=== PATIENT | female | born 1950 | race Caucasian/White ===

== ENCOUNTER 2018-08-24 11:46 | Observation (INO) | payer MEDICARE ==
[~2018-08-24 11:46] MED LIST: CHOL200074 PO; DIPH25TA20 PO; FURO20TA4 PO; GLIM2TAB3 PO; HYDR12.530 PO; KETO5DRO82 OP; LEVO500T89 PO; LOSA50TA64 PO; LUBI24CA2 PO; MONT10TA24 PO; OFLO35OS OD; OMEP40CA37 PO; PIOG15TA66 PO; PRED5DRO25 OP; RANI150T7 PO; SIMV20TA6 PO; TURM500C4 PO; UBID10CA6 PO; UMEC1DIS IH
[2018-08-24 13:10] LABS: EOSINOPHILS % (AUTO) 1.5 % (0.0-8.0); HEMATOCRIT 45.8 % (36-48); LYMPHOCYTES % (AUTO) 26.1 % (21.0-51.0); MEAN CORPUSCULAR HEMOGLOBIN 29.7 pg (27.0-33.0); MEAN CORPUSCULAR HGB CONC 32.7 g/dL (32.0-36.0); MEAN CORPUSCULAR VOLUME 90.9 fL (79-99); MONOCYTES % (AUTO) 9.6 % (3.0-13.0); NEUTROPHILS % (AUTO) 61.8 % (40.0-77.0); NUCLEATED RED BLOOD CELLS 0.1 % (0.0-0.19); PLATELET COUNT (AUTO) 211 K/uL (130-400); RED BLOOD CELL COUNT(AUTO) 5.04 MIL/uL (4.00-5.50); RED CELL DISTRIBUTION WIDTH 13.6 % (11.0-15.5); WHITE BLOOD COUNT (AUTO) 6.3 K/uL (4.8-10.8)
[2018-08-24 13:12] LABS: APPEARANCE,URINE Clear (CLEAR); BILIRUBIN,URINE Negative (NEGATIVE); COLOR,URINE Yellow (YELLOW); GLUCOSE, URINE (UA) Negative (NEGATIVE); KETONES,URINE Negative (NEGATIVE); LEUKOCYTE ESTERASE ,URINE Negative (NEGATIVE); NITRATE,URINE Negative (NEGATIVE); OCCULT BLOOD,URINE Negative (NEGATIVE); PROTEIN,URINE Negative (NEGATIVE); UROBILINOGEN,URINE 0.2 mg/dL (0.2-1.0)
[2018-08-24 13:18] LABS: CREATININE 0.8 mg/dL (0.5-1.5); POTASSIUM 3.6 mmol/L (3.5-5.1)
[2018-08-24 13:23] LABS: ALBUMIN 3.8 g/dL (3.5-5.0); BILIRUBIN,TOTAL 0.4 mg/dL (0.2-1.0); TOTAL PROTEIN, SERUM 8.2 g/dL (6.0-8.3)
[2018-08-24 13:24] LABS: INR 0.97 (0.85-1.15); PARTIAL THROMBOPLASTIN TIME 28.3 SEC (26.3-35.5); PROTHROMBIN TIME 10.2 SEC (9.6-11.6)
[2018-08-24] MEDS ORDERED: SODIUM CHLORIDE 0.9% 500ML 500 ML IV ONE (14:40)
[2018-08-24] MEDS ORDERED: ONDANSETRON HCL 4 MG/2 ML VIAL IV PRN (16:00)
[2018-08-24] MEDS ORDERED: HYDRALAZINE HCL 20 MG/ML VIAL IV PRN (16:00)
[2018-08-24] MEDS ORDERED: ACETAMINOPHEN 325 MG TAB PO PRN ×2 (16:00)
[2018-08-24] MEDS ORDERED: FAMOTIDINE/PF 20 MG/2 ML VIAL IV SCH (21:00)
== END 2018-08-24 21:16 | disposition home or self-care (01) ==
LOC: EDH 11:46 → EDHIP 15:49
PROVIDERS: ADMIT Internal Medicine; ATTEND Internal Medicine
DX: K57.30 Diverticulosis of large intestine without perforation or abscess without bleeding (principal); E11.9 Type 2 diabetes mellitus without complications; E66.9 Obesity, unspecified; I10 Essential (primary) hypertension; J44.9 Chronic obstructive pulmonary disease, unspecified; Z87.891 Personal history of nicotine dependence; Z98.51 Tubal ligation status; Z79.01 Long term (current) use of anticoagulants
CPT/HCPCS: 36415; 74176; 80053; 81003; 85025; 85610; 85730; 86850; 86900; 86901; 99284; G0378 ×5; J7040

== ENCOUNTER 2019-10-30 17:40 | Inpatient (IN) | payer MEDICARE ==
[~2019-10-30] VITALS: Ht 170.2 cm; Wt 137.0 kg
[~2019-10-30 17:40] MED LIST changes: -GLIM2TAB3 PO; +GLIM2TAB30 PO; -MONT10TA24 PO; +MONT10TA26 PO; +OMEP40CA13 PO; -OMEP40CA37 PO; +SIMV-43 PO; -SIMV20TA6 PO
[2019-10-30] MEDS ORDERED: ONDANSETRON HCL 4 MG/2 ML VIAL ONE (18:05)
[2019-10-30] MEDS ORDERED: MORPHINE SULFATE 4 MG/1ML SYG ONE ×2 (18:05→19:44)
[2019-10-30] MEDS ORDERED: SODIUM CHLORIDE 0.9% 1000ML 1,000 ML IV ONE ×2 (18:05→21:39)
[2019-10-30 18:19] LABS: BASOPHILS % (AUTO) 0.5 % (0.0-5.0); EOSINOPHILS % (AUTO) 0.7 % (0.0-8.0); HEMATOCRIT 42.1 % (36-48); LYMPHOCYTES % (AUTO) 15.6 % (21.0-51.0); MEAN CORPUSCULAR HEMOGLOBIN 30.4 pg (27.0-33.0); MEAN CORPUSCULAR HGB CONC 33.3 g/dL (32.0-36.0); MEAN CORPUSCULAR VOLUME 91.5 fL (79-99); MONOCYTES % (AUTO) 5.6 % (3.0-13.0); NEUTROPHILS % (AUTO) 77.1 % (40.0-77.0); PLATELET COUNT (AUTO) 227 K/uL (130-400); RED CELL DISTRIBUTION WIDTH 13.5 % (11.0-15.5); WHITE BLOOD COUNT (AUTO) 8.4 K/uL (4.8-10.8)
[2019-10-30 18:33] LABS: CREATININE 0.9 mg/dL (0.5-1.5); INR 0.96 (0.85-1.15); PARTIAL THROMBOPLASTIN TIME 26.4 SEC (26.3-35.5); POTASSIUM 3.7 mmol/L (3.5-5.1); PROTHROMBIN TIME 10.4 SEC (9.6-11.6)
[2019-10-30 18:38] LABS: ALBUMIN 3.7 g/dL (3.5-5.0); BILIRUBIN,TOTAL 0.2 mg/dL (0.2-1.0); TOTAL PROTEIN, SERUM 7.8 g/dL (6.0-8.3)
[2019-10-30] MEDS ORDERED: HYOSCYAMINE SULFATE 0.125 MG TAB.SUBL SL ONE (19:08)
[2019-10-30] MEDS ORDERED: FAMOTIDINE/PF 20 MG/2 ML VIAL IV ONE (19:09)
[2019-10-30] MEDS ORDERED: IPRATROPIUM/ALBUTEROL SULFATE 3 ML SOLUTION IH ONE (19:17)
[2019-10-30] MEDS ORDERED: ASPIRIN 325 MG TABLET ONE (19:51)
[2019-10-30] MEDS ORDERED: NITROGLYCERIN 0.4 MG SL TAB SL ONE (19:52)
[2019-10-30] MEDS ORDERED: SODIUM CHLORIDE 0.9% 250 ML IV ONE (19:56)
[2019-10-30] MEDS ORDERED: KETOROLAC TROMETHAMINE 15MG/ML ONE (20:22)
[2019-10-30] MEDS ORDERED: ACETAMINOPHEN 325 MG TAB PO PRN ×2 (21:15)
[2019-10-30] MEDS ORDERED: MORPHINE SULFATE 4 MG/1ML SYG IV PRN (21:15)
[2019-10-30] MEDS ORDERED: IPRATROPIUM/ALBUTEROL SULFATE 3 ML SOLUTION IH PRN (21:15)
[2019-10-30] MEDS ORDERED: LACTULOSE 20 GM/30 ML UDCUP PO PRN (21:15)
[2019-10-30] MEDS ORDERED: NITROGLYCERIN 0.4 MG SL TAB SL PRN (21:15)
[2019-10-30] MEDS: SODIUM CHLORIDE 0.9% 1000ML 1,000 ML IV SCH (21:15)
[2019-10-30] MEDS ORDERED: SODIUM CHLORIDE 0.9% 50 ML IV ONE (21:39)
[2019-10-30] MEDS ORDERED: CEFTRIAXONE SODIUM 1 GM ONE (21:39)
[2019-10-30 22:20] VITALS: BP 123/44
[2019-10-30] MEDS ORDERED: IOHEXOL 350 MG/ML 100ML INFUS..BTL IV ONE (22:50)
[2019-10-30] MEDS ORDERED: IOHEXOL-350 75 ML VIAL IV ONE (23:07)
[2019-10-30 23:35] LABS: CHOLESTEROL 163 mg/dL (<200); HDL CHOLESTEROL 105 mg/dL (35-85); LDL DIRECT 92 mg/dL (0-99); TRIGLYCERIDES 106 mg/dL (30-200)
[2019-10-30] MEDS ORDERED: AEC81 PO ×2 (23:35)
[2019-10-30] MEDS ORDERED: PIOG15TA66 PO (23:35)
[2019-10-30] MEDS ORDERED: LUBI24CA2 PO ×2 (23:35)
[2019-10-30] MEDS ORDERED: HYDR12.54 PO (23:35)
[2019-10-30] MEDS: AZITHROMYCIN 500MG+NS 250ML 250 ML IV SCH (23:40)
[2019-10-31] MEDS ORDERED: SODIUM CHLORIDE 3% FOR INHALATION 4 ML/AMP VIAL.NEB IH ONE ×2 (00:48→10:33)
[2019-10-31 03:22] LABS: BASOPHILS % (AUTO) 0.4 % (0.0-5.0); EOSINOPHILS % (AUTO) 0.2 % (0.0-8.0); HEMATOCRIT 40.7 % (36-48); LYMPHOCYTES % (AUTO) 11.6 % (21.0-51.0); MEAN CORPUSCULAR HEMOGLOBIN 30.5 pg (27.0-33.0); MEAN CORPUSCULAR HGB CONC 32.4 g/dL (32.0-36.0); MONOCYTES % (AUTO) 8.1 % (3.0-13.0); NEUTROPHILS % (AUTO) 79.3 % (40.0-77.0); PLATELET COUNT (AUTO) 203 K/uL (130-400); RED BLOOD CELL COUNT(AUTO) 4.33 MIL/uL (4.00-5.50); RED CELL DISTRIBUTION WIDTH 13.6 % (11.0-15.5); WHITE BLOOD COUNT (AUTO) 13.2 K/uL (4.8-10.8)
[2019-10-31 03:51] LABS: CREATININE 0.8 mg/dL (0.5-1.5); POTASSIUM 3.9 mmol/L (3.5-5.1)
[2019-10-31 04:00] VITALS: BP 113/40
[2019-10-31] MEDS ORDERED: BENZONATATE 100 MG CAPSULE PO PRN (05:30)
[2019-10-31] MEDS ORDERED: BENZONATATE 100 MG CAPSULE PO ONE (05:49)
[2019-10-31] MEDS ORDERED: KETOROLAC TROMETHAMINE 15MG/ML ONE (05:51)
[2019-10-31] MEDS: INSULIN HUMULIN R 100 UNIT/ML 3ML SQ SCH ×4 (07:30→21:00)
[2019-10-31 07:38] VITALS: BP 138/102
[2019-10-31] MEDS: IPRATROPIUM/ALBUTEROL SULFATE 3 ML SOLUTION IH SCH ×5 (08:45→23:22)
[2019-10-31] MEDS: METOPROLOL TARTRATE 25 MG TAB PO SCH ×2 (08:56→21:16)
[2019-10-31] MEDS: FAMOTIDINE/PF 20 MG/2 ML VIAL IV SCH ×2 (08:56→21:16)
[2019-10-31] MEDS: ENOXAPARIN SODIUM 40 MG/0.4 ML SYRINGE SQ SCH (08:59)
[2019-10-31] MEDS: SODIUM CHLORIDE 0.9% 1000ML 1,000 ML IV SCH ×2 (08:59→20:55)
[2019-10-31] MEDS: ASPIRIN 81MG TAB.CHEW PO SCH (08:59)
[2019-10-31] MEDS: LOSARTAN 50 MG TABLET PO SCH (09:00)
[2019-10-31] MEDS ORDERED: HYDROCODONE/ACETAMINOPHEN 5/325 MG TAB PO PRN (09:00)
[2019-10-31] MEDS: FUROSEMIDE 20 MG TABLET PO SCH (09:00)
[2019-10-31] MEDS: GLIMEPIRIDE 2 MG TABLET PO SCH ×2 (09:00→21:15)
[2019-10-31 10:58] VITALS: BP 143/73
[2019-10-31] MEDS: MORPHINE SULFATE 4 MG/1ML SYG IV PRN ×2 (11:09→23:15)
--- NOTE | 2019-10-31 11:46 | NUR ---
INITIAL SW spoke to patient. She states she lives with spouse, Greyson Giang, [phone]. No home services. DME: BPM, glucometer (no insulin), CPAP, O2 concentrator/portable, cane, walker with seat. O2 is through [employer]. Patient states she is able to complete ADL's independently and drives. PCP is Dr. Bryant Ball. Pharmacy is [facility] in [place]. DCP is home. Addendum: 10/31/19 at 1148 by MICHELLE MENDEZ SS Amended: Links added.
[2019-10-31 15:49] VITALS: BP 150/75
[2019-10-31] MEDS ORDERED: BUDESONIDE 0.5 MG/2 ML INH IH ONE (18:34)
[2019-10-31 19:00] VITALS: BP 137/68
[2019-10-31] MEDS: BUDESONIDE 0.5 MG/2 ML INH IH SCH (21:00)
[2019-10-31] MEDS: ATORVASTATIN CALCIUM 20 MG TABLET PO SCH (21:16)
[2019-10-31] MEDS: OSELTAMIVIR PHOSPHATE 75 MG CAP PO SCH (21:16)
[2019-10-31] MEDS: MONTELUKAST SODIUM 10 MG TAB PO SCH (21:16)
[2019-10-31] MEDS: KETOROLAC TROMETHAMINE 15MG/ML IV PRN (21:31)
--- NOTE | 2019-10-31 21:50 | NUR ---
At change of shift RT unsuccessfully attempted to draw ABG' x1, RT attempted to redraw, but patient refused. At this time, Nurse attempted to convince patient to allow RT to attempt ABG draw, but patient states has been through a lot today and RT will have to wait until tomorrow to try again.
[2019-10-31] MEDS: CEFTRIAXONE SODIUM 1 GM IV SCH (22:01)
[2019-10-31] MEDS: GUAIFENESIN-DM 200/20 MG 10 ML PO PRN (22:03)
--- NOTE | 2019-10-31 22:30 | NUR ---
Abnormal HIDA scan results called in to Dr. Amor, order given to obtain consent for lap ry, possible open for tomorrow. Report was given to Mauri Berger RN as patient will be transferred to room 230 for persistent respiratory issues.
[2019-10-31 22:46] LABS: APPEARANCE,URINE Clear (CLEAR); BILIRUBIN,URINE Negative (NEGATIVE); COLOR,URINE Yellow (YELLOW); GLUCOSE, URINE (UA) Negative (NEGATIVE); KETONES,URINE 15 mg/dL (NEGATIVE); LEUKOCYTE ESTERASE ,URINE Trace (NEGATIVE); NITRATE,URINE Negative (NEGATIVE); OCCULT BLOOD,URINE Negative (NEGATIVE); PH,URINE 5.5 (5.0-8.0); PROTEIN,URINE Negative (NEGATIVE)
[2019-10-31 23:09] LABS: BACTERIA,URINE None Seen /HPF (None Seen); RBC,URINE None Seen /HPF (0-1); SQUAMOUS EPITHELIAL CELL,UR Rare /HPF (0-2); WBC,URINE 0-1 /HPF (0-1)
[2019-10-31 23:13] VITALS: BP 148/68
[2019-10-31] MEDS: AZITHROMYCIN 500MG+NS 250ML 250 ML IV SCH (23:14)
[2019-11-01] VITALS (23 sets, daily range): BP systolic 119–180; BP diastolic 69–102
[2019-11-01] MEDS: IPRATROPIUM/ALBUTEROL SULFATE 3 ML SOLUTION IH SCH ×5 (01:21→22:12)
[2019-11-01] MEDS: MORPHINE SULFATE 4 MG/1ML SYG IV PRN ×3 (01:55→15:40)
[2019-11-01 05:13] LABS: BASOPHILS % (AUTO) 0.4 % (0.0-5.0); HEMATOCRIT 39.4 % (36-48); LYMPHOCYTES % (AUTO) 14.8 % (21.0-51.0); MEAN CORPUSCULAR HGB CONC 32.2 g/dL (32.0-36.0); MEAN CORPUSCULAR VOLUME 92.9 fL (79-99); MONOCYTES % (AUTO) 10.8 % (3.0-13.0); NEUTROPHILS % (AUTO) 72.5 % (40.0-77.0); PLATELET COUNT (AUTO) 188 K/uL (130-400); RED BLOOD CELL COUNT(AUTO) 4.24 MIL/uL (4.00-5.50); RED CELL DISTRIBUTION WIDTH 13.8 % (11.0-15.5)
[2019-11-01 05:30] LABS: ALBUMIN 3.1 g/dL (3.5-5.0); BILIRUBIN,TOTAL 0.4 mg/dL (0.2-1.0); CREATININE 0.8 mg/dL (0.5-1.5); POTASSIUM 3.2 mmol/L (3.5-5.1); TOTAL PROTEIN, SERUM 7.1 g/dL (6.0-8.3)
[2019-11-01] MEDS ORDERED: POTASSIUM CHLORIDE 20MEQ/100ML 100 ML IV PRN (05:45)
[2019-11-01] MEDS ORDERED: LIDOCAINE HCL-MPF 1% 2ML VIAL IV PRN (05:45)
[2019-11-01] MEDS: INSULIN HUMULIN R 100 UNIT/ML 3ML SQ SCH ×4 (06:12→20:55)
[2019-11-01] MEDS: POTASSIUM CHLORIDE 20MEQ/100ML 100 ML IV PRN (06:19)
[2019-11-01] MEDS: BUDESONIDE 0.5 MG/2 ML INH IH SCH ×3 (07:22→19:11)
[2019-11-01] MEDS: METOPROLOL TARTRATE 25 MG TAB PO SCH ×2 (08:36→20:25)
[2019-11-01] MEDS: GLIMEPIRIDE 2 MG TABLET PO SCH ×2 (08:36→20:24)
[2019-11-01] MEDS: FAMOTIDINE/PF 20 MG/2 ML VIAL IV SCH ×2 (08:36→21:02)
[2019-11-01] MEDS: ASPIRIN 81MG TAB.CHEW PO SCH (08:37)
[2019-11-01] MEDS: OSELTAMIVIR PHOSPHATE 75 MG CAP PO SCH (08:37)
[2019-11-01] MEDS: LOSARTAN 50 MG TABLET PO SCH (08:37)
[2019-11-01] MEDS: ENOXAPARIN SODIUM 40 MG/0.4 ML SYRINGE SQ SCH ×2 (08:39→09:00)
[2019-11-01] MEDS ORDERED: BUPIVACAINE/PF 0.5% 30ML VIAL ONE (10:33)
--- NOTE | 2019-11-01 10:47 | NUR ---
Patient transferred to OR holding area in stable condition at this time.
[2019-11-01] MEDS ORDERED: LIDOCAINE PF 2% 5ML ABBOJECT ONE (11:03)
[2019-11-01] MEDS ORDERED: DEXAMETHASONE SOD PHOSPHATE 10MG/ML 1ML VIAL ONE (11:03)
[2019-11-01] MEDS ORDERED: ONDANSETRON HCL 4 MG/2 ML VIAL ONE (11:04)
[2019-11-01] MEDS ORDERED: PROPOFOL 10 MG/ML 20ML VIAL IV ONE ×2 (11:04→12:09)
[2019-11-01] MEDS ORDERED: FENTANYL CITRATE PF 50 MCG/1 ML 2ML VIAL ONE (11:04)
[2019-11-01] MEDS ORDERED: MIDAZOLAM HCL 1 MG/ML 2ML VIAL ONE (11:04)
[2019-11-01] MEDS ORDERED: ROCURONIUM 10MG/1ML SYR 10 MG/ML ML ONE ×2 (11:26→12:09)
[2019-11-01] MEDS ORDERED: GLYCOPYRROLATE 1 MG/5 ML SYRINGE ONE (11:58)
[2019-11-01] MEDS ORDERED: NEOSTIGMINE 5MG/5ML SYR IV ONE (12:08)
[2019-11-01] MEDS ORDERED: FENTANYL CITRATE PF 0.05 MG/ML 1,000 MCG in SODIUM CHLORIDE 0.9% 100 ML IVPB SCH (12:45)
[2019-11-01] MEDS ORDERED: MIDAZOLAM 50MG-0.9% NS 50ML 50 ML BAG IV SCH (12:45)
[2019-11-01] MEDS ORDERED: FENTANYL 1000MCG+NS 100ML 100 ML ONE (12:55)
[2019-11-01] MEDS: SODIUM CHLORIDE 0.9% 1000ML 1,000 ML IV SCH (13:23)
[2019-11-01 13:47] LABS: ABG BASE EXCESS -4.1 mmol/L (-2.0-3.0); ABG HCO3 22.3 mmol/L (21.0-28.0); ABG OXYGEN SATURATION 99.7 % (95.0-99.0); ABG PCO2 45 mmHg (32-45)
--- NOTE | 2019-11-01 14:58 | NUR ---
PATIENT WENT FOR PROCEDURE IN AM.Will initiate PT Evaluation 11/02/2019. Addendum: 11/01/19 at 1459 by NATANAEL KAUFFMAN, PT PT Amended: Links added.
[2019-11-01] MEDS: MIDAZOLAM 50MG-0.9% NS 50ML 50 ML IV SCH ×3 (15:38→22:01)
[2019-11-01] MEDS: FENTANYL 1000MCG+NS 100ML IV.SOLN IV SCH ×2 (16:48→22:38)
[2019-11-01] MEDS: ATORVASTATIN CALCIUM 20 MG TABLET PO SCH (20:25)
[2019-11-01] MEDS: MONTELUKAST SODIUM 10 MG TAB PO SCH (20:25)
[2019-11-01] MEDS: CEFTRIAXONE SODIUM 1 GM IV SCH (21:02)
[2019-11-01] MEDS: HYDRALAZINE HCL 20 MG/ML VIAL IV PRN (21:03)
[2019-11-02] VITALS (22 sets, daily range): BP systolic 126–176; BP diastolic 59–88
[2019-11-02] MEDS: IPRATROPIUM/ALBUTEROL SULFATE 3 ML SOLUTION IH SCH ×7 (02:03→22:10)
[2019-11-02 03:57] LABS: BASOPHILS % (AUTO) 0.2 % (0.0-5.0); EOSINOPHILS % (AUTO) 0.2 % (0.0-8.0); HEMATOCRIT 36.6 % (36-48); MEAN CORPUSCULAR HEMOGLOBIN 29.8 pg (27.0-33.0); MEAN CORPUSCULAR HGB CONC 31.7 g/dL (32.0-36.0); MEAN CORPUSCULAR VOLUME 94.1 fL (79-99); MONOCYTES % (AUTO) 8.4 % (3.0-13.0); NEUTROPHILS % (AUTO) 78.7 % (40.0-77.0); PLATELET COUNT (AUTO) 166 K/uL (130-400); RED BLOOD CELL COUNT(AUTO) 3.89 MIL/uL (4.00-5.50); RED CELL DISTRIBUTION WIDTH 14.3 % (11.0-15.5); WHITE BLOOD COUNT (AUTO) 12.7 K/uL (4.8-10.8)
[2019-11-02] MEDS: FENTANYL 1000MCG+NS 100ML IV.SOLN IV SCH ×2 (04:04→09:36)
[2019-11-02] MEDS: MIDAZOLAM 50MG-0.9% NS 50ML 50 ML IV SCH ×2 (04:04→21:48)
[2019-11-02 04:15] LABS: ALBUMIN 2.5 g/dL (3.5-5.0); BILIRUBIN,TOTAL 0.6 mg/dL (0.2-1.0); CREATININE 0.8 mg/dL (0.5-1.5); POTASSIUM 3.7 mmol/L (3.5-5.1)
[2019-11-02] MEDS: INSULIN HUMULIN R 100 UNIT/ML 3ML SQ SCH ×4 (05:58→21:00)
[2019-11-02] MEDS: BUDESONIDE 0.5 MG/2 ML INH IH SCH ×2 (06:30→18:59)
[2019-11-02] MEDS: GLIMEPIRIDE 2 MG TABLET PO SCH ×2 (09:00→21:15)
[2019-11-02] MEDS: LOSARTAN 50 MG TABLET PO SCH (09:08)
[2019-11-02] MEDS: FUROSEMIDE 20 MG TABLET PO SCH (09:08)
[2019-11-02] MEDS: METOPROLOL TARTRATE 25 MG TAB PO SCH ×2 (09:08→21:15)
[2019-11-02] MEDS: ENOXAPARIN SODIUM 40 MG/0.4 ML SYRINGE SQ SCH (09:09)
[2019-11-02] MEDS: ASPIRIN 81MG TAB.CHEW PO SCH (09:09)
[2019-11-02] MEDS: FAMOTIDINE/PF 20 MG/2 ML VIAL IV SCH ×2 (09:09→21:15)
[2019-11-02] MEDS: SODIUM CHLORIDE 0.9% 1000ML 1,000 ML IV SCH (09:09)
--- NOTE | 2019-11-02 11:12 | NUR ---
patient still intubated.As per PATEL Saenz not ready to initiate Physical Therapy Evaluation today. Addendum: 11/02/19 at 1113 by NATANAEL KAUFFMAN, PT PT Amended: Links added.
[2019-11-02 13:26] LABS: ABG BASE EXCESS -5.1 mmol/L (-2.0-3.0); ABG HCO3 18.1 mmol/L (21.0-28.0); ABG OXYGEN SATURATION 96.5 % (95.0-99.0); ABG PCO2 29 mmHg (32-45)
--- NOTE | 2019-11-02 14:40 | NUR ---
BACK ON VENT DR. STALEY NOTIFIED OF PATIENT STATUS. HE STATED TO PUT PATIENT BACK ON VENT AT PREVIOUS SETTINGS AND RESUME WEANING TRIAL IN AM.
[2019-11-02] MEDS: HYDRALAZINE HCL 20 MG/ML VIAL IV PRN (18:10)
[2019-11-02] MEDS: MONTELUKAST SODIUM 10 MG TAB PO SCH (21:15)
[2019-11-02] MEDS: ATORVASTATIN CALCIUM 20 MG TABLET PO SCH (21:16)
[2019-11-02] MEDS: CEFTRIAXONE SODIUM 1 GM IV SCH (22:01)
[2019-11-03] VITALS (30 sets, daily range): BP systolic 122–181; BP diastolic 59–105
[2019-11-03] MEDS: IPRATROPIUM/ALBUTEROL SULFATE 3 ML SOLUTION IH SCH ×9 (00:44→21:38)
[2019-11-03 03:58] LABS: BASOPHILS % (AUTO) 0.4 % (0.0-5.0); EOSINOPHILS % (AUTO) 0.8 % (0.0-8.0); LYMPHOCYTES % (AUTO) 12.3 % (21.0-51.0); MEAN CORPUSCULAR HEMOGLOBIN 30.4 pg (27.0-33.0); MEAN CORPUSCULAR HGB CONC 32.3 g/dL (32.0-36.0); MEAN CORPUSCULAR VOLUME 94.1 fL (79-99); MONOCYTES % (AUTO) 9.5 % (3.0-13.0); NEUTROPHILS % (AUTO) 76.5 % (40.0-77.0); PLATELET COUNT (AUTO) 180 K/uL (130-400); RED BLOOD CELL COUNT(AUTO) 3.72 MIL/uL (4.00-5.50); WHITE BLOOD COUNT (AUTO) 9.8 K/uL (4.8-10.8)
[2019-11-03 04:24] LABS: ALBUMIN 2.2 g/dL (3.5-5.0); BILIRUBIN,TOTAL 0.3 mg/dL (0.2-1.0); CREATININE 0.6 mg/dL (0.5-1.5); POTASSIUM 3.1 mmol/L (3.5-5.1); TOTAL PROTEIN, SERUM 6.6 g/dL (6.0-8.3)
[2019-11-03] MEDS: INSULIN HUMULIN R 100 UNIT/ML 3ML SQ SCH ×4 (06:27→20:56)
[2019-11-03] MEDS: POTASSIUM CHLORIDE 10% ELIXIR 20 MEQ/15 ML UDCUP PO PRN ×2 (06:57→09:24)
[2019-11-03 06:59] LABS: ABG BASE EXCESS -0.4 mmol/L (-2.0-3.0); ABG HCO3 24.3 mmol/L (21.0-28.0); ABG OXYGEN SATURATION 94.9 % (95.0-99.0); ABG PCO2 40 mmHg (32-45)
[2019-11-03] MEDS: BUDESONIDE 0.5 MG/2 ML INH IH SCH ×2 (07:25→19:05)
[2019-11-03] MEDS: GLIMEPIRIDE 2 MG TABLET PO SCH ×2 (09:00→20:56)
[2019-11-03] MEDS: FAMOTIDINE/PF 20 MG/2 ML VIAL IV SCH ×2 (09:18→20:54)
[2019-11-03] MEDS: ASPIRIN 81MG TAB.CHEW PO SCH (09:24)
[2019-11-03] MEDS: LOSARTAN 50 MG TABLET PO SCH (09:24)
[2019-11-03] MEDS: METOPROLOL TARTRATE 25 MG TAB PO SCH ×2 (09:24→20:54)
[2019-11-03] MEDS: ENOXAPARIN SODIUM 40 MG/0.4 ML SYRINGE SQ SCH (09:29)
[2019-11-03 12:25] LABS: ABG BASE EXCESS 1.2 mmol/L (-2.0-3.0); ABG HCO3 25.7 mmol/L (21.0-28.0); ABG OXYGEN SATURATION 96.6 % (95.0-99.0); ABG PCO2 41 mmHg (32-45)
[2019-11-03 13:47] LABS: ABG HCO3 26.2 mmol/L (21.0-28.0); ABG PCO2 43 mmHg (32-45)
[2019-11-03] MEDS ORDERED: FUROSEMIDE 10 MG/ML 4ML VIAL IV SCH (14:15)
--- NOTE | 2019-11-03 14:39 | NUR ---
1040- patient is not ready to initiate PT EVALUATION PER PATEL CHARLTON.Patient is still intubated. Addendum: 11/03/19 at 1440 by NATANAEL KAUFFMAN, PT PT Amended: Links added.
[2019-11-03] MEDS: HYDRALAZINE HCL 20 MG/ML VIAL IV PRN (17:07)
[2019-11-03] MEDS: KETOROLAC TROMETHAMINE 15MG/ML IV PRN (17:56)
[2019-11-03 19:33] LABS: ABG BASE EXCESS -0.2 mmol/L (-2.0-3.0); ABG HCO3 23.7 mmol/L (21.0-28.0); ABG OXYGEN SATURATION 97.5 % (95.0-99.0); ABG PCO2 36 mmHg (32-45)
[2019-11-03] MEDS: ATORVASTATIN CALCIUM 20 MG TABLET PO SCH (20:54)
[2019-11-03] MEDS: MONTELUKAST SODIUM 10 MG TAB PO SCH (20:54)
[2019-11-03] MEDS: CEFTRIAXONE SODIUM 1 GM IV SCH (22:12)
[2019-11-04] VITALS (43 sets, daily range): BP systolic 116–174; BP diastolic 51–95
[2019-11-04] MEDS: HYDRALAZINE HCL 20 MG/ML VIAL IV PRN ×2 (01:54→11:39)
[2019-11-04] MEDS: IPRATROPIUM/ALBUTEROL SULFATE 3 ML SOLUTION IH SCH ×6 (02:18→23:07)
[2019-11-04 03:50] LABS: HEMATOCRIT 40.5 % (36-48); MEAN CORPUSCULAR HEMOGLOBIN 29.8 pg (27.0-33.0); MEAN CORPUSCULAR HGB CONC 31.9 g/dL (32.0-36.0); MEAN CORPUSCULAR VOLUME 93.5 fL (79-99); PLATELET COUNT (AUTO) 201 K/uL (130-400); RED BLOOD CELL COUNT(AUTO) 4.33 MIL/uL (4.00-5.50); RED CELL DISTRIBUTION WIDTH 14.1 % (11.0-15.5); WHITE BLOOD COUNT (AUTO) 10.4 K/uL (4.8-10.8)
[2019-11-04 04:06] LABS: CREATININE 0.7 mg/dL (0.5-1.5); POTASSIUM 4.6 mmol/L (3.5-5.1)
[2019-11-04] MEDS: MORPHINE SULFATE 4 MG/1ML SYG IV PRN ×2 (04:48→17:34)
[2019-11-04] MEDS: ONDANSETRON HCL 4 MG/2 ML VIAL IV PRN (04:49)
[2019-11-04] MEDS: INSULIN HUMULIN R 100 UNIT/ML 3ML SQ SCH ×4 (06:35→20:29)
[2019-11-04] MEDS: BUDESONIDE 0.5 MG/2 ML INH IH SCH ×2 (06:38→20:16)
[2019-11-04] MEDS: METOPROLOL TARTRATE 25 MG TAB PO SCH ×2 (08:18→21:06)
[2019-11-04] MEDS: ASPIRIN 81MG TAB.CHEW PO SCH (08:18)
[2019-11-04] MEDS: LOSARTAN 50 MG TABLET PO SCH (08:18)
[2019-11-04] MEDS: GLIMEPIRIDE 2 MG TABLET PO SCH ×2 (08:19→21:06)
[2019-11-04] MEDS: FUROSEMIDE 20 MG TABLET PO SCH (08:19)
[2019-11-04] MEDS: FAMOTIDINE/PF 20 MG/2 ML VIAL IV SCH ×2 (08:20→21:07)
[2019-11-04] MEDS: ENOXAPARIN SODIUM 40 MG/0.4 ML SYRINGE SQ SCH (08:20)
[2019-11-04 17:31] LABS: ABG BASE EXCESS 1.9 mmol/L (-2.0-3.0); ABG OXYGEN SATURATION 91.1 % (95.0-99.0); ABG PCO2 44 mmHg (32-45)
[2019-11-04] MEDS: ATORVASTATIN CALCIUM 20 MG TABLET PO SCH (21:07)
[2019-11-04] MEDS: CEFTRIAXONE SODIUM 1 GM IV SCH (21:07)
[2019-11-04] MEDS: MONTELUKAST SODIUM 10 MG TAB PO SCH (21:07)
[2019-11-05] VITALS (32 sets, daily range): BP systolic 116–199; BP diastolic 43–108
[2019-11-05] MEDS: MORPHINE SULFATE 4 MG/1ML SYG IV PRN (00:10)
--- NOTE | 2019-11-05 02:00 | NUR ---
Patient pulled NG tube. Re-attempted to insert but patient refusing and nodding head No. Will relay message to MD in morning and RN during shift change. Patient stable, no distress noted, call light within reach, patient near nurses station.
[2019-11-05] MEDS: IPRATROPIUM/ALBUTEROL SULFATE 3 ML SOLUTION IH SCH ×7 (02:38→21:35)
[2019-11-05 04:18] LABS: HEMATOCRIT 35.5 % (36-48); MEAN CORPUSCULAR HEMOGLOBIN 29.8 pg (27.0-33.0); MEAN CORPUSCULAR HGB CONC 32.1 g/dL (32.0-36.0); MEAN CORPUSCULAR VOLUME 92.7 fL (79-99); PLATELET COUNT (AUTO) 213 K/uL (130-400); RED BLOOD CELL COUNT(AUTO) 3.83 MIL/uL (4.00-5.50); WHITE BLOOD COUNT (AUTO) 8.1 K/uL (4.8-10.8)
[2019-11-05 04:23] LABS: CARBON DIOXIDE 30 mmol/L (21-32); CHLORIDE 109 mmol/L (101-111); CREATININE 0.7 mg/dL (0.5-1.5); GLOMERULAR FILTR. RATE CALC 88 mL/min (>60); GLUCOSE,RANDOM 101 mg/dL (70-105); PHOSPHORUS 3.2 mg/dL (2.5-4.9); POTASSIUM 3.3 mmol/L (3.5-5.1); SODIUM SERUM 147 mmol/L (136-145); UREA NITROGEN, BLOOD 23 mg/dL (7-18)
[2019-11-05 04:43] LABS: B-TYPE NATRIURETIC PEPTIDE 267 pg/mL (0-100)
[2019-11-05 06:00] LABS: BAND NEUTROPHILS % (MANUAL) 2 % (0-2); BASOPHILS % (MANUAL) 1 % (0-2); LYMPHOCYTES % (MANUAL) 12 % (22-44); MAN.DIFF COMMENT-IMPRESSION MANUAL DIFFERENTIAL; MONOCYTES % (MANUAL) 3 % (2-9); PLATELET MORPHOLOGY COMMENT ADEQUATE; REACTIVE LYMPHOCYTES 2 % (0-0); SEGMENTED NEUTROPHILS % 80 % (40-70)
[2019-11-05] MEDS: HYDRALAZINE HCL 20 MG/ML VIAL IV PRN ×2 (06:13→13:32)
[2019-11-05] MEDS: INSULIN HUMULIN R 100 UNIT/ML 3ML SQ SCH ×3 (06:58→20:15)
--- NOTE | 2019-11-05 07:00 | NUR ---
PT PULLED IV AND SAT UP IN BED AGITATED, RESTLESS, CONFUSED. CHARCOAL KILN BURNER STAYED AT BEDSIDE
--- NOTE | 2019-11-05 07:30 | NUR ---
PT SITTING AT EGDE OF BED. RN AT BEDSIDE. PT AGITATED, ATTEMPTED TO GET UP, FELL ON TO HER RIGHT SIDE WITH AN ASSISTED FALL. PT WAS WITNESSED TO HIT HER RIGHT SIDE OF HER HEAD AGAINST THE WALL. DR KENNY NOTIFIED.
[2019-11-05 07:33] LABS: ABG HCO3 25.4 mmol/L (21.0-28.0); ABG OXYGEN SATURATION 76.6 % (95.0-99.0); ABG PCO2 36 mmHg (32-45)
[2019-11-05 07:37] LABS: ABG BASE EXCESS 2.1 mmol/L (-2.0-3.0); ABG HCO3 25.5 mmol/L (21.0-28.0); ABG OXYGEN SATURATION 80.1 % (95.0-99.0); ABG PCO2 36 mmHg (32-45)
--- NOTE | 2019-11-05 08:30 | NUR ---
TAKEN TO CT SCAN WITH NURSE AT BEDSIDE. ATIVAN IM GIVEN DUE TO AGITATION
[2019-11-05] MEDS ORDERED: IOHEXOL-350 75 ML VIAL IV ONE (08:45)
[2019-11-05 08:49] LABS: BASOPHILS % (AUTO) 0.9 % (0.0-5.0); EOSINOPHILS % (AUTO) 1.2 % (0.0-8.0); HEMATOCRIT 40.7 % (36-48); LYMPHOCYTES % (AUTO) 11.2 % (21.0-51.0); MEAN CORPUSCULAR HEMOGLOBIN 30.2 pg (27.0-33.0); MEAN CORPUSCULAR HGB CONC 31.2 g/dL (32.0-36.0); MEAN CORPUSCULAR VOLUME 96.7 fL (79-99); MONOCYTES % (AUTO) 10.3 % (3.0-13.0); NEUTROPHILS % (AUTO) 75.1 % (40.0-77.0); PLATELET COUNT (AUTO) 217 K/uL (130-400); RED BLOOD CELL COUNT(AUTO) 4.21 MIL/uL (4.00-5.50); RED CELL DISTRIBUTION WIDTH 14.4 % (11.0-15.5); WHITE BLOOD COUNT (AUTO) 8.9 K/uL (4.8-10.8)
[2019-11-05] MEDS: GLIMEPIRIDE 2 MG TABLET PO SCH ×2 (09:00→20:06)
[2019-11-05] MEDS: LOSARTAN 50 MG TABLET PO SCH (09:00)
[2019-11-05] MEDS: METOPROLOL TARTRATE 25 MG TAB PO SCH (09:00)
[2019-11-05] MEDS: ASPIRIN 81MG TAB.CHEW PO SCH (09:00)
[2019-11-05] MEDS ORDERED: LORAZEPAM 2 MG/ML 1 ML VIAL ONE (09:03)
[2019-11-05 09:05] LABS: ALBUMIN 2.4 g/dL (3.5-5.0); BILIRUBIN,TOTAL 0.5 mg/dL (0.2-1.0); CREATININE 0.7 mg/dL (0.5-1.5); POTASSIUM 4.2 mmol/L (3.5-5.1); TOTAL PROTEIN, SERUM 7.6 g/dL (6.0-8.3)
[2019-11-05 09:07] LABS: APPEARANCE,URINE Clear (CLEAR); BILIRUBIN,URINE Negative (NEGATIVE); COLOR,URINE Yellow (YELLOW); GLUCOSE, URINE (UA) Negative (NEGATIVE); KETONES,URINE >=160 mg/dL (NEGATIVE); LEUKOCYTE ESTERASE ,URINE Moderate (NEGATIVE); NITRATE,URINE Negative (NEGATIVE); OCCULT BLOOD,URINE Large (NEGATIVE); PH,URINE 5.5 (5.0-8.0); PROTEIN,URINE POS 1+ mg/dL (NEGATIVE)
[2019-11-05 09:15] LABS: BACTERIA,URINE Rare /HPF (None Seen); RBC,URINE 51-100 /HPF (0-1); WBC,URINE 26-50 /HPF (0-1)
[2019-11-05 09:16] LABS: YEAST,URINE BUDDING Moderate /HPF (None Seen)
[2019-11-05 09:17] LABS: SQUAMOUS EPITHELIAL CELL,UR 0-2 /HPF (0-2)
[2019-11-05] MEDS: LORAZEPAM 2 MG/ML 1 ML VIAL IM SCH ×2 (09:19→10:25)
[2019-11-05] MEDS ORDERED: IOHEXOL 350 MG/ML 100ML INFUS..BTL IV ONE (09:28)
[2019-11-05] MEDS ORDERED: LABETALOL HCL 5 MG/ML 20ML VIAL IV SCH ×2 (10:15)
[2019-11-05] MEDS: BUDESONIDE 0.5 MG/2 ML INH IH SCH ×2 (10:20→18:54)
[2019-11-05] MEDS: ENOXAPARIN SODIUM 40 MG/0.4 ML SYRINGE SQ SCH (10:27)
[2019-11-05 11:38] LABS: TROPONIN I 0.11 ng/mL (0.00-0.06)
--- NOTE | 2019-11-05 11:51 | NUR ---
DYSPHAGIA EVAL COMPLETED. +S/S OF ASPIRATION. RECOMMEND CONTINUATION OF NG TUBE FEEDING WITH PLEASURE FEEDS OF THIN LIQUID BY SPOON UNDER 1:1 SUPERVISION UNTIL MBSS. Pt VERY IMPULSIVE; BE CAREFUL WITH PLASTIC SPOONS DURING PLEASURE FEEDS. CHILDREN'S ENTERTAINER EDUCATED Pt ON RISKS AND CONSEQUENCES OF ASPIRATION. CHILDREN'S ENTERTAINER COORDINATED CARE WITH NURSE LARSON. Addendum: 11/05/[address] RODRIGUEZ Amended: Links added.
[2019-11-05] MEDS: FAMOTIDINE/PF 20 MG/2 ML VIAL IV SCH ×2 (12:05→20:06)
[2019-11-05] MEDS: ONDANSETRON HCL 4 MG/2 ML VIAL IV PRN (13:33)
[2019-11-05] MEDS: NITROGLYCERIN 1GM/1 INCH PACKET TD SCH ×2 (14:53→20:15)
[2019-11-05] MEDS: LORAZEPAM 2 MG/ML 1 ML VIAL IVP PRN ×2 (14:58→21:27)
[2019-11-05 17:31] LABS: TROPONIN I 0.14 ng/mL (0.00-0.06)
[2019-11-05] MEDS: METOPROLOL TARTRATE 50 MG TAB PO SCH (20:06)
[2019-11-05] MEDS: MONTELUKAST SODIUM 10 MG TAB PO SCH (20:06)
[2019-11-05] MEDS: CEFTRIAXONE SODIUM 1 GM IV SCH (21:03)
[2019-11-06] VITALS (19 sets, daily range): BP systolic 106–163; BP diastolic 47–98
[2019-11-06 00:09] LABS: TROPONIN I 0.12 ng/mL (0.00-0.06)
--- NOTE | 2019-11-06 01:14 | NUR ---
Patient Alert to person, place not time. Patient continues to be agitated and refuses to keep Bipap on longer than 2hrs, back on NC 4L. Also, requesting get off bed. Patient is being spoon fed ice chips and clear liquids at bedside. Patient is stable, good, has 1:1 sitter and is near the nurses station. No distress noted. Will continue to monitor.
[2019-11-06] MEDS: IPRATROPIUM/ALBUTEROL SULFATE 3 ML SOLUTION IH SCH ×7 (01:44→22:34)
[2019-11-06] MEDS: NITROGLYCERIN 1GM/1 INCH PACKET TD SCH ×4 (02:15→21:27)
[2019-11-06] MEDS: LORAZEPAM 2 MG/ML 1 ML VIAL IVP PRN ×3 (03:36→13:00)
[2019-11-06 03:54] LABS: MEAN CORPUSCULAR HEMOGLOBIN 29.3 pg (27.0-33.0); MEAN CORPUSCULAR HGB CONC 31.8 g/dL (32.0-36.0); MEAN CORPUSCULAR VOLUME 92.1 fL (79-99); PLATELET COUNT (AUTO) 235 K/uL (130-400); RED BLOOD CELL COUNT(AUTO) 3.69 MIL/uL (4.00-5.50); RED CELL DISTRIBUTION WIDTH 14.1 % (11.0-15.5); WHITE BLOOD COUNT (AUTO) 7.4 K/uL (4.8-10.8)
[2019-11-06 04:07] LABS: CREATININE 0.8 mg/dL (0.5-1.5); MAGNESIUM 2.2 mg/dL (1.80-2.40); POTASSIUM 3.1 mmol/L (3.5-5.1)
[2019-11-06 04:15] LABS: BAND NEUTROPHILS % (MANUAL) 5 % (0-2); LYMPHOCYTES % (MANUAL) 24 % (22-44); MAN.DIFF COMMENT-IMPRESSION MANUAL DIFFERENTIAL; MONOCYTES % (MANUAL) 3 % (2-9); PLATELET MORPHOLOGY COMMENT ADEQUATE; SEGMENTED NEUTROPHILS % 68 % (40-70)
[2019-11-06 04:23] LABS: ABG BASE EXCESS 3.6 mmol/L (-2.0-3.0); ABG HCO3 27.8 mmol/L (21.0-28.0); ABG PCO2 41 mmHg (32-45)
[2019-11-06] MEDS: BUDESONIDE 0.5 MG/2 ML INH IH SCH ×2 (06:27→18:53)
--- NOTE | 2019-11-06 07:00 | NUR ---
Patient had 1 episode of V-tach 7 beats @ 0643 a.m. Paged Critical Care for orders and informed day Nurse Sally. Patient sleeping when episode happened. Patient awaken, no distress noted, call light within reach and patient near nurses station.
[2019-11-06] MEDS: INSULIN HUMULIN R 100 UNIT/ML 3ML SQ SCH ×4 (07:30→21:00)
[2019-11-06] MEDS: FAMOTIDINE/PF 20 MG/2 ML VIAL IV SCH ×2 (07:48→21:26)
[2019-11-06] MEDS: ONDANSETRON HCL 4 MG/2 ML VIAL IV PRN (07:48)
[2019-11-06] MEDS: LIDOCAINE HCL-MPF 1% 2ML VIAL IV PRN ×2 (07:48→13:01)
[2019-11-06] MEDS: ASPIRIN 81MG TAB.CHEW PO SCH (07:49)
[2019-11-06] MEDS: POTASSIUM CHLORIDE 20MEQ/100ML 100 ML IV PRN ×2 (07:50→12:59)
[2019-11-06] MEDS: POTASSIUM CHLORIDE 10% ELIXIR 20 MEQ/15 ML UDCUP PO PRN (07:51)
[2019-11-06] MEDS: GUAIFENESIN-DM 200/20 MG 10 ML PO PRN (07:51)
[2019-11-06] MEDS: ENOXAPARIN SODIUM 40 MG/0.4 ML SYRINGE SQ SCH (08:02)
[2019-11-06] MEDS: LOSARTAN 100 MG TABLET PO SCH (08:07)
[2019-11-06] MEDS: METOPROLOL TARTRATE 50 MG TAB PO SCH ×2 (08:07→21:26)
[2019-11-06] MEDS: GLIMEPIRIDE 2 MG TABLET PO SCH ×2 (08:08→21:29)
[2019-11-06] MEDS ORDERED: PHARMACY COMMUNICATION MISC SCH (09:30)
--- NOTE | 2019-11-06 10:00 | NUR ---
PT PULLED OUT IV. RESTARTED 20GAUGE TO LEFT AC
[2019-11-06] MEDS: MORPHINE SULFATE 4 MG/1ML SYG IV PRN (10:25)
[2019-11-06] MEDS ORDERED: LORAZEPAM 2 MG/ML 1 ML VIAL IVP PRN (13:15)
--- NOTE | 2019-11-06 17:21 | NUR ---
SBAR REPORT TO JOANN SWEENEY. TRANSFERRED TO RM 203 SITTER AT BEDSIDE
[2019-11-06] MEDS ORDERED: DEXTROSE 5 %-0.45 % NACL 500 ML IV SCH (21:15)
[2019-11-06] MEDS ORDERED: DEXTROSE 5 %-0.45 % NACL 1,000 ML IV ONE (21:24)
[2019-11-06] MEDS: CEFTRIAXONE SODIUM 1 GM IV SCH (21:26)
[2019-11-06] MEDS: MONTELUKAST SODIUM 10 MG TAB PO SCH (21:26)
[2019-11-07] VITALS (7 sets, daily range): BP systolic 134–165; BP diastolic 71–90
[2019-11-07] MEDS: IPRATROPIUM/ALBUTEROL SULFATE 3 ML SOLUTION IH SCH ×7 (02:38→21:50)
[2019-11-07] MEDS: NITROGLYCERIN 1GM/1 INCH PACKET TD SCH ×2 (05:32→08:07)
[2019-11-07] MEDS: BUDESONIDE 0.5 MG/2 ML INH IH SCH ×2 (07:11→18:37)
[2019-11-07] MEDS: INSULIN HUMULIN R 100 UNIT/ML 3ML SQ SCH ×4 (07:30→20:20)
--- NOTE | 2019-11-07 08:00 | NUR ---
ASSESSMENT PT IS AAOX3 DENIES CP DENIES SOB DENIES NV SITTING UPRIGHT IN BED. NO VISIBLE SIGNS OF DISTRESS NOTED, BREATHING PATTERN IS EVEN AND UNLABORED. HOB UP AT 30 DEGREES, CALL LIGHT WITHIN REACH, DOOR AJAR BLINDS OPEN, SIDE RAILS UP X4, 1:1 SITTER AT BEDSIDE. MEDS GIVEN WITH SMALL SIP OF WATER, SWALLOWED MEDS WITHOUT DIFFICULTY. PATIENT WANTED MORE WATER, MORE WATER GIVEN AND NOTED THAT PATIENT HAD SOME COUGHING WITH DRINKING MORE WATER. WILL MAINTAIN PT NPO UNTIL SEEN BY .
[2019-11-07] MEDS: FUROSEMIDE 20 MG TABLET PO SCH (08:06)
[2019-11-07] MEDS: ENOXAPARIN SODIUM 40 MG/0.4 ML SYRINGE SQ SCH (08:06)
[2019-11-07] MEDS: FAMOTIDINE/PF 20 MG/2 ML VIAL IV SCH ×2 (08:06→20:20)
[2019-11-07] MEDS: ASPIRIN 81MG TAB.CHEW PO SCH (08:06)
[2019-11-07] MEDS: METOPROLOL TARTRATE 50 MG TAB PO SCH ×2 (08:06→20:20)
[2019-11-07] MEDS: GLIMEPIRIDE 2 MG TABLET PO SCH ×2 (08:07→20:20)
[2019-11-07] MEDS: LOSARTAN 100 MG TABLET PO SCH (08:07)
[2019-11-07] MEDS ORDERED: POTASSIUM CHLORIDE 20 MEQ in DEXTROSE 5%-WATER 1,000 ML IV SCH (09:29)
[2019-11-07] MEDS: POTASSIUM CHLORIDE 20 MEQ in DEXTROSE 5%-WATER 1,000 ML IV SCH ×2 (09:44→17:17)
--- NOTE | 2019-11-07 17:23 | NUR ---
STATUS TOLERATED LIQUID DINNER. NO COMPLAINTS. SITTING UP AT BEDSIDE.
--- NOTE | 2019-11-07 17:29 | NUR ---
MBSS COMPLETED TRANSIENT PENETRATION WITH THIN AND NECTAR THICK LIQUIDS. RECOMMEND REGULAR, THIN LIQUIDS (SMALL SIPS) TOLERATED, AND PILLS WHOLE WITH LIQUIDS. RECOMMENDATIONS: Pt IMPULSIVE WITH WATER AND CAN INCREASE RISKS OF ASPIRATION IF NOT SUPERVISED OR REMINDED OF THE FOLLOWING COMPENSATORY STRATEGIES. 1. SMALL BITES AND SIPS 2. ALTERNATE LIQUIDS/SOLIDS 3. NO STRAW 4. DOUBLE SWALLOW 5. SITTING UPRIGHT (90 DEGREES) 6. UPRIGHT 30 MIN AFTER MEAL HOSPICE SPIRITUAL CARE COORDINATOR PROVIDED NURSE AND Pt THE RESULTS AND RECOMMENDATIONS. Pt VERBALIZED UNDERSTANDING AND COMPLIANCE WITH RECOMMENDATIONS. HOSPICE SPIRITUAL CARE COORDINATOR WILL CONTINUE TO FOLLOW Pt. Addendum: 11/07/[address] RODRIGUEZ Amended: Links added.
[2019-11-07] MEDS: MONTELUKAST SODIUM 10 MG TAB PO SCH (20:20)
[2019-11-07] MEDS: CEFTRIAXONE SODIUM 1 GM IV SCH (21:05)
[2019-11-08] MEDS: IPRATROPIUM/ALBUTEROL SULFATE 3 ML SOLUTION IH SCH ×5 (01:28→18:45)
[2019-11-08] MEDS: GUAIFENESIN-DM 200/20 MG 10 ML PO PRN ×3 (02:32→20:58)
[2019-11-08 04:04] VITALS: BP 129/73
[2019-11-08 04:26] LABS: BASOPHILS % (AUTO) 0.9 % (0.0-5.0); EOSINOPHILS % (AUTO) 4.5 % (0.0-8.0); HEMATOCRIT 34.4 % (36-48); LYMPHOCYTES % (AUTO) 21.3 % (21.0-51.0); MEAN CORPUSCULAR HEMOGLOBIN 29.8 pg (27.0-33.0); MEAN CORPUSCULAR HGB CONC 31.7 g/dL (32.0-36.0); MONOCYTES % (AUTO) 10.3 % (3.0-13.0); NEUTROPHILS % (AUTO) 61.6 % (40.0-77.0); PLATELET COUNT (AUTO) 239 K/uL (130-400); RED BLOOD CELL COUNT(AUTO) 3.66 MIL/uL (4.00-5.50); RED CELL DISTRIBUTION WIDTH 13.7 % (11.0-15.5); WHITE BLOOD COUNT (AUTO) 7.8 K/uL (4.8-10.8)
[2019-11-08 04:42] LABS: ALBUMIN 2.2 g/dL (3.5-5.0); CARBON DIOXIDE 31 mmol/L (21-32); CHLORIDE 106 mmol/L (101-111); CREATININE 0.6 mg/dL (0.5-1.5); GLOMERULAR FILTR. RATE CALC 105 mL/min (>60); GLUCOSE,RANDOM 81 mg/dL (70-105); PHOSPHORUS 3.1 mg/dL (2.5-4.9); POTASSIUM 3.1 mmol/L (3.5-5.1); SODIUM SERUM 142 mmol/L (136-145); UREA NITROGEN, BLOOD 12 mg/dL (7-18)
[2019-11-08] MEDS: POTASSIUM CHLORIDE 10% ELIXIR 20 MEQ/15 ML UDCUP PO PRN (05:32)
[2019-11-08] MEDS: POTASSIUM CHLORIDE 20 MEQ in DEXTROSE 5%-WATER 1,000 ML IV SCH ×2 (05:34→10:00)
[2019-11-08] MEDS: INSULIN HUMULIN R 100 UNIT/ML 3ML SQ SCH ×4 (05:48→20:25)
[2019-11-08] MEDS: BUDESONIDE 0.5 MG/2 ML INH IH SCH ×2 (06:31→18:56)
[2019-11-08 08:00] VITALS: BP 89/56
[2019-11-08] MEDS: METOPROLOL TARTRATE 50 MG TAB PO SCH ×2 (09:04→20:49)
[2019-11-08] MEDS: LOSARTAN 100 MG TABLET PO SCH (09:04)
[2019-11-08] MEDS: GLIMEPIRIDE 2 MG TABLET PO SCH ×2 (09:05→20:49)
[2019-11-08] MEDS: ASPIRIN 81MG TAB.CHEW PO SCH (09:05)
[2019-11-08] MEDS: FAMOTIDINE/PF 20 MG/2 ML VIAL IV SCH ×2 (09:06→20:49)
[2019-11-08] MEDS: ENOXAPARIN SODIUM 40 MG/0.4 ML SYRINGE SQ SCH (09:06)
[2019-11-08] MEDS: POTASSIUM CHLORIDE 20 MEQ ERTAB PO PRN ×3 (11:14→17:31)
[2019-11-08 11:37] VITALS: BP 144/59
--- NOTE | 2019-11-08 14:03 | NUR ---
AMNA SCREEN - LOS X 9 PT WITH HIGH ASPIRATION RISK PER POT HOLDER BINDER. FEEDING ASSISTANCE/SUPERVISION RECOMMENDED. SLOW, SMALL BITES, SLOW SIPS, THIN LIQUIDS. AMNA RECOMMEND MECHANICAL SOFT, FINELY CHOPPED, SOFT BLAND DIET ORDER. RECOMMEND ENSURE CLEAR QD. PT WITH CLASS III OBESITY (46.8 BMI). S/P LAP YESSICA. S/P EXTUBATION. RD TO CONTINUE TO MONITOR. PLEASE NOTIFY RD ADDITIONAL NUTRITION CONCERNS ARISE. THANK YOU. Addendum: 11/08/19 at [address] Amended: Links added. Addendum: 11/08/19 at [address] RD UPDATE DISCUSSED POC WITH POT HOLDER BINDER. OKAY TO TRANSITION PT MECHANICAL SOFT TO REGULAR DIET ORDER, RECOMMENDED BY POT HOLDER BINDER. PLEASE NOTIFY ADDITIONAL NUTRITION CONCERNS ARISE. THANK YOU.
--- NOTE | 2019-11-08 15:10 | NUR ---
FOLLOW UP COMPLETED. Pt TOLERATING THIN LIQUIDS WITH NO OVERT S/S OF ASPIRATION WHILE USING COMPENSATORY STRATEGIES TO MINIMIZE RISKS OF ASPIRATION. CONTROL TOWER OPERATOR WILL FOLLOW Pt WHEN SHE STARTS EATING SOLIDS. CONTROL TOWER OPERATOR COORDINATED CARE WITH NURSE ASHLEY. Addendum: 11/08/[address]HAEL Amended: Links added.
[2019-11-08 16:39] VITALS: BP 140/79
[2019-11-08 19:26] VITALS: BP 114/50
[2019-11-08] MEDS: CEFTRIAXONE SODIUM 1 GM IV SCH (20:49)
[2019-11-08] MEDS: MONTELUKAST SODIUM 10 MG TAB PO SCH (20:49)
[2019-11-08 23:45] VITALS: BP 137/76
[2019-11-09] MEDS: IPRATROPIUM/ALBUTEROL SULFATE 3 ML SOLUTION IH SCH ×3 (01:45→09:49)
[2019-11-09 03:10] VITALS: BP 156/69
[2019-11-09] MEDS: BUDESONIDE 0.5 MG/2 ML INH IH SCH ×2 (06:23→18:21)
[2019-11-09] MEDS: INSULIN HUMULIN R 100 UNIT/ML 3ML SQ SCH ×2 (06:32→11:30)
--- NOTE | 2019-11-09 08:00 | NUR ---
ASSESSMENT ENCOUNTERED PT A&OX3, CALM COOPERATIVE AND DOES NOT APPEAR TO BE IN ANY DISTRESS NOR ANY NEURO DEFICITS PRESENT. PT DENIES PAIN, SOB, NAUSEA BUT DOES C/O INTERMITTENT COUGH WITH PHLEGM. PT IS AMBULATORY, GAIT SLOW AND UNSTEADY WITH WALKER, GAIT BELT AND 2 PERSON ASSIST. PT IS ABLE TO TOLERATE FOODS, FLUIDS AND MEDICATION WITH NO THROAT CLEARING OR COUGH. CALL LIGHT WITHIN REACH.
[2019-11-09 08:16] VITALS: BP 125/58
[2019-11-09] MEDS ORDERED: BENZONATATE 100 MG CAPSULE PO PRN (10:00)
--- NOTE | 2019-11-09 10:38 | NUR ---
DEREK ALEXANDER/ANTONIETA ACCEPTED PER JARED AT [facility], PATIENT RECEIVED AUTH FOR [facility], PENDING DC THIS AFTERNOON. TRAE SWEENEY, MADE AWARE. WILL WORK ON MOT AND EMS FOR TRANSFER.
[2019-11-09] MEDS: LOSARTAN 100 MG TABLET PO SCH (11:26)
[2019-11-09] MEDS: METOPROLOL TARTRATE 50 MG TAB PO SCH (11:27)
[2019-11-09] MEDS: GLIMEPIRIDE 2 MG TABLET PO SCH (11:27)
[2019-11-09] MEDS: FUROSEMIDE 20 MG TABLET PO SCH (11:27)
[2019-11-09] MEDS: ASPIRIN 81MG TAB.CHEW PO SCH (11:27)
[2019-11-09] MEDS: FAMOTIDINE/PF 20 MG/2 ML VIAL IV SCH ×2 (11:29→18:16)
[2019-11-09] MEDS: ENOXAPARIN SODIUM 40 MG/0.4 ML SYRINGE SQ SCH (11:29)
[2019-11-09] MEDS ORDERED: BUDE0.5A3 IH (13:32)
[2019-11-09] MEDS: GUAIFENESIN-DM 200/20 MG 10 ML PO PRN (14:40)
[2019-11-09] MEDS: POTASSIUM CHLORIDE 20 MEQ ERTAB PO PRN (15:42)
[2019-11-09 16:51] VITALS: BP 148/77
[2019-11-09] MEDS ORDERED: IPRATROPIUM/ALBUTEROL SULFATE 3 ML SOLUTION IH SCH (18:00)
--- NOTE | 2019-11-09 18:00 | NUR ---
DISCHARGE INSTRUCTIONS GIVEN, REPORT CALLED TO ANTONIETA, SPOKE WITH KAREN ALVARADO RN. PT TRANSFERRED VIA EMS.
== END 2019-11-09 18:45 | DRG 853 ==
LOC: EDH 17:40 → EDHIP 21:15 → 3DH 22:27 → 2AH 10-31 22:31 → 4BH 11-01 10:55 → 2BH 11-01 12:18 → 2AH 11-06 17:13
PROVIDERS: ADMIT Internal Medicine; ATTEND Internal Medicine
PROC: 5A1945Z Respiratory Ventilation, 24-96 Consecutive Hours (ICD-10-PCS; 2019-11-01)
PROC: 0BH17EZ Insertion of Endotracheal Airway into Trachea, Via Natural or Artificial Opening (ICD-10-PCS; 2019-11-01)
PROC: 0FT44ZZ Resection of Gallbladder, Percutaneous Endoscopic Approach (ICD-10-PCS; principal; 2019-11-01 11:05)
PROC: 5A09357 Assistance with Respiratory Ventilation, Less than 24 Consecutive Hours, Continuous Positive Airway Pressure (ICD-10-PCS; 2019-11-03)
PROC: 5A09357 Assistance with Respiratory Ventilation, Less than 24 Consecutive Hours, Continuous Positive Airway Pressure (ICD-10-PCS; 2019-11-05)
PROC: 5A09357 Assistance with Respiratory Ventilation, Less than 24 Consecutive Hours, Continuous Positive Airway Pressure (ICD-10-PCS; 2019-11-06)
PROC: 5A09357 Assistance with Respiratory Ventilation, Less than 24 Consecutive Hours, Continuous Positive Airway Pressure (ICD-10-PCS; 2019-11-07)
DX: A41.9 Sepsis, unspecified organism (principal); E43 Unspecified severe protein-calorie malnutrition; J96.21 Acute and chronic respiratory failure with hypoxia; I21.4 Non-ST elevation (NSTEMI) myocardial infarction; J69.0 Pneumonitis due to inhalation of food and vomit; J18.9 Pneumonia, unspecified organism; K80.00 Calculus of gallbladder with acute cholecystitis without obstruction; J44.1 Chronic obstructive pulmonary disease with (acute) exacerbation; J44.0 Chronic obstructive pulmonary disease with (acute) lower respiratory infection; Z68.42 Body mass index [BMI] 45.0-49.9, adult; E66.2 Morbid (severe) obesity with alveolar hypoventilation; I16.1 Hypertensive emergency; N39.0 Urinary tract infection, site not specified; G93.40 Encephalopathy, unspecified; M62.82 Rhabdomyolysis; I10 Essential (primary) hypertension; R16.0 Hepatomegaly, not elsewhere classified; E11.65 Type 2 diabetes mellitus with hyperglycemia; E87.6 Hypokalemia; K42.9 Umbilical hernia without obstruction or gangrene; J98.4 Other disorders of lung; K57.30 Diverticulosis of large intestine without perforation or abscess without bleeding; I45.10 Unspecified right bundle-branch block; K76.0 Fatty (change of) liver, not elsewhere classified; K82.8 Other specified diseases of gallbladder; M19.90 Unspecified osteoarthritis, unspecified site; W18.30XA Fall on same level, unspecified, initial encounter; Y93.89 Activity, other specified; Y99.8 Other external cause status; Z74.01 Bed confinement status; Z79.82 Long term (current) use of aspirin; Z79.899 Other long term (current) drug therapy; Z99.81 Dependence on supplemental oxygen; Z87.891 Personal history of nicotine dependence; Z91.19 Patient's noncompliance with other medical treatment and regimen; Z83.3 Family history of diabetes mellitus; Z82.49 Family history of ischemic heart disease and other diseases of the circulatory system
CPT/HCPCS: 36415; 36600; 70450; 71045; 71275; 72125; 74176; 74230; 76705; 78226; 80048; 80053; 80061; 81001; 82040; 82435; 82550; 82803; 82947; 82948; 83605; 83690; 83735; 83874; 83880; 84100; 84132; 84145; 84295; 84484; 85018; 85025; 85027; 85378; 85610; 85730; 87071; 87088; 87205; 87633; 88304; 92610; 92611; 93005; 93970; 94002; 94003; 94150; 94640; 94660; 94667; 94668; 97039; A4344; A9537; G0378; J0360; J0456; J0696; J1100; J1650; J1885; J1940; J2001; J2060; J2250; J2270; J2405; J2704; J2710; J3010; J3480; J3490; J7030; J7042; J7050; J7070; J7120; Q9967

== ENCOUNTER → 2019-12-06 | Outpatient (CLI) | payer MEDICARE ==
[~2019-12-06] MED LIST changes: +AEC81 PO; +BUDE0.5A3 IH; -DIPH25TA20 PO; -HYDR12.530 PO; +HYDR12.54 PO; -KETO5DRO82 OP; -LEVO500T89 PO; -OFLO35OS OD; -PRED5DRO25 OP; -RANI150T7 PO
== END | disposition home or self-care (01) ==
LOC: SHCH 10:41
PROVIDERS: ATTEND Internal Medicine Cardiovascular Disease
DX: R60.9 Edema, unspecified (principal)
CPT/HCPCS: 93306

== ENCOUNTER 2020-10-28 08:14 | Inpatient (IN) | payer MEDICARE ==
[~2020-10-28] VITALS: Ht 170.2 cm; Wt 125.9 kg
[~2020-10-28 08:14] MED LIST changes: +MONT-39 PO; -MONT10TA26 PO; -OMEP40CA13 PO; +OMEP40CA21 PO
[2020-10-28] MEDS ORDERED: NITROGLYCERIN 1GM OINT 1 INCH/1GM TD ONE (08:46)
[2020-10-28 08:51] LABS: BASOPHILS % (AUTO) 1.4 % (0.0-5.0); EOSINOPHILS % (AUTO) 3.1 % (0.0-8.0); HEMATOCRIT 42.6 % (36-48); LYMPHOCYTES % (AUTO) 14.8 % (21.0-51.0); MEAN CORPUSCULAR HEMOGLOBIN 29.2 pg (27.0-33.0); MEAN CORPUSCULAR HGB CONC 33.3 g/dL (32.0-36.0); MEAN CORPUSCULAR VOLUME 87.5 fL (79-99); MONOCYTES % (AUTO) 5.8 % (3.0-13.0); NEUTROPHILS % (AUTO) 66.6 % (40.0-77.0); NUCLEATED RED BLOOD CELLS 0.9 % (0.0-0.19); PLATELET COUNT (AUTO) 150 K/uL (130-400); RED BLOOD CELL COUNT(AUTO) 4.87 MIL/uL (4.00-5.50); RED CELL DISTRIBUTION WIDTH 13.2 % (11.0-15.5); WHITE BLOOD COUNT (AUTO) 11.8 K/uL (4.8-10.8)
[2020-10-28 09:16] LABS: ALBUMIN 3.1 g/dL (3.5-5.0); BILIRUBIN,TOTAL 0.3 mg/dL (0.2-1.0); CREATININE 0.7 mg/dL (0.5-1.5); POTASSIUM 3.2 mmol/L (3.5-5.1); TOTAL PROTEIN, SERUM 7.7 g/dL (6.0-8.3)
[2020-10-28 09:18] LABS: B-TYPE NATRIURETIC PEPTIDE 88 pg/mL (0-100)
[2020-10-28] MEDS ORDERED: HYDROMORPHONE 1 MG INJ ONE (09:23)
[2020-10-28] MEDS ORDERED: ONDANSETRON 4MG INJ ONE (09:23)
[2020-10-28 10:00] LABS: APPEARANCE,URINE Clear (CLEAR); BILIRUBIN,URINE Negative (NEGATIVE); COLOR,URINE Yellow (YELLOW); GLUCOSE, URINE (UA) Negative (NEGATIVE); KETONES,URINE 15 mg/dL (NEGATIVE); LEUKOCYTE ESTERASE ,URINE Negative (NEGATIVE); NITRATE,URINE Negative (NEGATIVE); OCCULT BLOOD,URINE Nonhemolyzed Trace (NEGATIVE); PH,URINE 5.5 (5.0-8.0); PROTEIN,URINE POS 2+ mg/dL (NEGATIVE)
[2020-10-28] MEDS ORDERED: IOHEXOL 350 MG/ML 100ML INFUS..BTL IV ONE (10:21)
[2020-10-28 10:31] LABS: BACTERIA,URINE Many /HPF (None Seen); SQUAMOUS EPITHELIAL CELL,UR Many /HPF (0-2)
[2020-10-28] MEDS ORDERED: POTASSIUM CHLORIDE 10% ELIXIR 20 MEQ/15 ML UDCUP PO PRN (12:45)
[2020-10-28] MEDS ORDERED: LACTULOSE 20 GM/30 ML UDCUP PO PRN (12:45)
[2020-10-28] MEDS ORDERED: SOLU-MEDROL 125MG VIAL IV SCH (12:45)
[2020-10-28] MEDS ORDERED: POTASSIUM CHLORIDE 10MEQ/100ML 100 ML IV PRN (12:45)
[2020-10-28] MEDS ORDERED: LIDOCAINE HCL-MPF 1% 2ML VIAL IV PRN (12:45)
[2020-10-28] MEDS ORDERED: DOXYCYCLINE 100MG+NS 250ML 250 ML IV SCH (12:45)
[2020-10-28] MEDS ORDERED: KCL 20 MEQ ERTAB PO PRN (12:45)
[2020-10-28] MEDS ORDERED: HYDROMORPHONE 0.5 MG SYG (0.5MG/0.5ML) ONE (12:49)
[2020-10-28] MEDS ORDERED: AZITHROMYCIN 500MG+NS 250ML 250 ML IV ONE (14:50)
[2020-10-28] MEDS ORDERED: SOLU-MEDROL 40MG VIAL ONE (14:50)
[2020-10-28] MEDS ORDERED: DOXYCYCLINE 100MG+NS 250ML 250 ML IV ONE (14:50)
[2020-10-28 15:00] LABS: ABG BASE EXCESS 2.2 mmol/L (-2.0-3.0); ABG HCO3 29.2 mmol/L (21.0-28.0); ABG OXYGEN SATURATION 85.6 % (95.0-99.0); ABG PCO2 55 mmHg (32-45)
[2020-10-28] MEDS ORDERED: MORPHINE 2 MG SYG ONE (15:10)
[2020-10-28] MEDS ORDERED: IPRATROPIUM/ALBUTEROL SULFATE 3 ML SOLUTION IH ONE (15:13)
[2020-10-28] MEDS ORDERED: INSULIN HUMULIN R 100 UNIT/ML 3ML ONE (18:18)
[2020-10-28] MEDS ORDERED: BUDESONIDE 0.5 MG/2 ML INH IH ONE (19:27)
[2020-10-28] MEDS: IPRATROPIUM/ALBUTEROL SULFATE 3 ML SOLUTION IH SCH (19:37)
[2020-10-28] MEDS: BUDESONIDE 0.5 MG/2 ML INH IH SCH (19:37)
[2020-10-28 19:53] VITALS: BP 165/87
[2020-10-28] MEDS: INSULIN HUMULIN R 100 UNIT/ML 3ML SQ SCH ×2 (20:07→20:52)
[2020-10-28] MEDS: AZITHROMYCIN 500MG+NS 250ML 250 ML IV SCH (20:07)
[2020-10-28] MEDS: SOLU-MEDROL 125MG VIAL IV SCH (20:32)
[2020-10-28] MEDS: FAMOTIDINE 20MG TAB PO SCH (20:32)
[2020-10-28] MEDS: MORPHINE 2 MG SYG IV PRN (20:33)
[2020-10-28] MEDS: ENOXAPARIN SODIUM 40 MG/0.4 ML SYRINGE SQ SCH (20:35)
[2020-10-28] MEDS: DOXYCYCLINE 100MG+NS 250ML 250 ML IV SCH (20:51)
[2020-10-28 23:49] VITALS: BP 145/98
[2020-10-29] MEDS: IPRATROPIUM/ALBUTEROL SULFATE 3 ML SOLUTION IH SCH ×4 (00:16→19:07)
[2020-10-29] MEDS: MORPHINE 2 MG SYG IV PRN ×3 (03:38→18:07)
[2020-10-29 04:00] VITALS: BP 104/96
[2020-10-29] MEDS: ACETAMINOPHEN 325 MG TAB PO PRN (04:07)
[2020-10-29] MEDS: SOLU-MEDROL 125MG VIAL IV SCH (04:07)
[2020-10-29 05:26] LABS: BASOPHILS % (AUTO) 1.1 % (0.0-5.0); EOSINOPHILS % (AUTO) 0.3 % (0.0-8.0); HEMATOCRIT 38.8 % (36-48); LYMPHOCYTES % (AUTO) 14.9 % (21.0-51.0); MEAN CORPUSCULAR HEMOGLOBIN 29.7 pg (27.0-33.0); MEAN CORPUSCULAR HGB CONC 33.5 g/dL (32.0-36.0); MEAN CORPUSCULAR VOLUME 88.6 fL (79-99); MONOCYTES % (AUTO) 5.8 % (3.0-13.0); NEUTROPHILS % (AUTO) 70.1 % (40.0-77.0); NUCLEATED RED BLOOD CELLS 0.8 % (0.0-0.19); PLATELET COUNT (AUTO) 128 K/uL (130-400); RED BLOOD CELL COUNT(AUTO) 4.38 MIL/uL (4.00-5.50); RED CELL DISTRIBUTION WIDTH 13.2 % (11.0-15.5); WHITE BLOOD COUNT (AUTO) 9.3 K/uL (4.8-10.8)
[2020-10-29 05:42] LABS: CREATININE 0.6 mg/dL (0.5-1.5); POTASSIUM 3.9 mmol/L (3.5-5.1)
[2020-10-29 06:24] LABS: ABG BASE EXCESS 0.7 mmol/L (-2.0-3.0); ABG HCO3 25.3 mmol/L (21.0-28.0); ABG OXYGEN SATURATION 85.3 % (95.0-99.0); ABG PCO2 40 mmHg (32-45)
[2020-10-29] MEDS: BUDESONIDE 0.5 MG/2 ML INH IH SCH ×2 (06:45→19:17)
[2020-10-29] MEDS: ENOXAPARIN SODIUM 40 MG/0.4 ML SYRINGE SQ SCH ×2 (09:02→19:55)
[2020-10-29] MEDS: FAMOTIDINE 20MG TAB PO SCH ×2 (09:03→19:54)
[2020-10-29] MEDS: DOXYCYCLINE 100MG+NS 250ML 250 ML IV SCH ×2 (09:03→19:55)
[2020-10-29] MEDS: ASPIRIN 81 MG EC TAB PO SCH (10:35)
[2020-10-29] MEDS: HYDROCHLOROTHIAZIDE 25 MG TABLET PO SCH (10:36)
[2020-10-29] MEDS: ONDANSETRON 4MG INJ IV PRN ×2 (10:51→18:07)
[2020-10-29] MEDS: INSULIN HUMULIN R 100 UNIT/ML 3ML SQ SCH ×3 (12:10→21:00)
[2020-10-29 12:11] VITALS: BP 165/80
[2020-10-29] MEDS: AZITHROMYCIN 500MG+NS 250ML 250 ML IV SCH (12:11)
[2020-10-29] MEDS ORDERED: TRAM50TA4 PO (13:31)
[2020-10-29] MEDS ORDERED: FURO40TA5 PO (13:31)
[2020-10-29] MEDS: SOLU-MEDROL 40MG VIAL IVP SCH ×2 (14:00→19:54)
[2020-10-29] MEDS ORDERED: SOLU-MEDROL 125MG VIAL IV SCH (14:00)
[2020-10-29 16:00] VITALS: BP 169/97
[2020-10-29] MEDS: SIMVASTATIN 20 MG TABLET PO SCH (19:54)
[2020-10-29] MEDS: GUAIFENESIN-CODEINE 5 ML SYRUP PO PRN (19:54)
[2020-10-29] MEDS: MONTELUKAST SODIUM 10 MG TAB PO SCH (19:54)
[2020-10-29 20:00] VITALS: BP 153/67
[2020-10-29 23:22] VITALS: BP 151/64
[2020-10-30] MEDS: IPRATROPIUM/ALBUTEROL SULFATE 3 ML SOLUTION IH SCH ×4 (00:25→19:30)
[2020-10-30] MEDS: ACETAMINOPHEN 325 MG TAB PO PRN ×2 (01:32→21:50)
[2020-10-30] MEDS: MORPHINE 2 MG SYG IV PRN ×3 (01:32→14:40)
[2020-10-30] MEDS: GUAIFENESIN-CODEINE 5 ML SYRUP PO PRN ×4 (01:32→21:50)
[2020-10-30 04:08] VITALS: BP 149/76
[2020-10-30 04:47] LABS: BASOPHILS % (AUTO) 1.1 % (0.0-5.0); EOSINOPHILS % (AUTO) 0.2 % (0.0-8.0); HEMATOCRIT 38.8 % (36-48); LYMPHOCYTES % (AUTO) 14.8 % (21.0-51.0); MEAN CORPUSCULAR HEMOGLOBIN 29.6 pg (27.0-33.0); MEAN CORPUSCULAR HGB CONC 33.5 g/dL (32.0-36.0); MEAN CORPUSCULAR VOLUME 88.4 fL (79-99); MONOCYTES % (AUTO) 7.3 % (3.0-13.0); NEUTROPHILS % (AUTO) 69.6 % (40.0-77.0); NUCLEATED RED BLOOD CELLS 0.7 % (0.0-0.19); PLATELET COUNT (AUTO) 128 K/uL (130-400); RED BLOOD CELL COUNT(AUTO) 4.39 MIL/uL (4.00-5.50); RED CELL DISTRIBUTION WIDTH 13.5 % (11.0-15.5); WHITE BLOOD COUNT (AUTO) 12.5 K/uL (4.8-10.8)
[2020-10-30 05:07] LABS: INR 1.18 (0.85-1.15); PROTHROMBIN TIME 12.7 SEC (9.6-11.6)
[2020-10-30 05:09] LABS: CREATININE 0.7 mg/dL (0.5-1.5); POTASSIUM 3.9 mmol/L (3.5-5.1)
[2020-10-30] MEDS: SOLU-MEDROL 40MG VIAL IVP SCH ×3 (05:34→21:50)
[2020-10-30] MEDS: INSULIN HUMULIN R 100 UNIT/ML 3ML SQ SCH ×4 (05:35→22:12)
[2020-10-30] MEDS: BUDESONIDE 0.5 MG/2 ML INH IH SCH ×2 (07:12→19:30)
[2020-10-30 07:41] LABS: ABG BASE EXCESS 1.7 mmol/L (-2.0-3.0); ABG HCO3 26.2 mmol/L (21.0-28.0); ABG OXYGEN SATURATION 89.6 % (95.0-99.0); ABG PCO2 41 mmHg (32-45)
[2020-10-30 08:00] VITALS: BP 159/88
[2020-10-30] MEDS: HYDROCHLOROTHIAZIDE 25 MG TABLET PO SCH (08:32)
[2020-10-30] MEDS: ASPIRIN 81 MG EC TAB PO SCH (08:33)
[2020-10-30] MEDS: FAMOTIDINE 20MG TAB PO SCH ×2 (08:33→21:51)
[2020-10-30] MEDS: LOSARTAN 50 MG TABLET PO SCH (08:33)
[2020-10-30] MEDS: FUROSEMIDE 40 MG TABLET PO SCH (08:33)
[2020-10-30] MEDS: DOXYCYCLINE 100MG+NS 250ML 250 ML IV SCH ×2 (08:34→21:51)
[2020-10-30] MEDS: ENOXAPARIN SODIUM 40 MG/0.4 ML SYRINGE SQ SCH ×2 (08:34→21:51)
[2020-10-30] MEDS: ONDANSETRON 4MG INJ IV PRN (08:37)
[2020-10-30 12:00] VITALS: BP 159/95
[2020-10-30] MEDS: AZITHROMYCIN 500MG+NS 250ML 250 ML IV SCH (12:20)
[2020-10-30 16:00] VITALS: BP 154/69
[2020-10-30 20:36] VITALS: BP 161/103
[2020-10-30] MEDS: MONTELUKAST SODIUM 10 MG TAB PO SCH (21:50)
[2020-10-30] MEDS: SIMVASTATIN 20 MG TABLET PO SCH (21:51)
[2020-10-30 23:41] VITALS: BP 151/97
[2020-10-31] MEDS: IPRATROPIUM/ALBUTEROL SULFATE 3 ML SOLUTION IH SCH ×5 (00:02→23:08)
[2020-10-31 03:54] VITALS: BP 110/65
[2020-10-31] MEDS: SOLU-MEDROL 40MG VIAL IVP SCH ×3 (05:12→21:23)
[2020-10-31 05:36] LABS: BASOPHILS % (AUTO) 0.1 % (0.0-5.0); EOSINOPHILS % (AUTO) 0.2 % (0.0-8.0); HEMATOCRIT 39.8 % (36-48); LYMPHOCYTES % (AUTO) 14.4 % (21.0-51.0); MEAN CORPUSCULAR HGB CONC 33.4 g/dL (32.0-36.0); MEAN CORPUSCULAR VOLUME 89.6 fL (79-99); MONOCYTES % (AUTO) 5.9 % (3.0-13.0); NEUTROPHILS % (AUTO) 71.2 % (40.0-77.0); NUCLEATED RED BLOOD CELLS 0.6 % (0.0-0.19); PLATELET COUNT (AUTO) 126 K/uL (130-400); RED BLOOD CELL COUNT(AUTO) 4.44 MIL/uL (4.00-5.50); RED CELL DISTRIBUTION WIDTH 13.6 % (11.0-15.5); WHITE BLOOD COUNT (AUTO) 11.5 K/uL (4.8-10.8)
[2020-10-31 05:39] LABS: CREATININE 0.7 mg/dL (0.5-1.5); MAGNESIUM 1.9 mg/dL (1.80-2.40); POTASSIUM 3.9 mmol/L (3.5-5.1)
[2020-10-31] MEDS: GUAIFENESIN-CODEINE 5 ML SYRUP PO PRN ×2 (06:54→21:21)
[2020-10-31] MEDS: INSULIN HUMULIN R 100 UNIT/ML 3ML SQ SCH ×4 (06:58→21:03)
[2020-10-31] MEDS ORDERED: MAGNESIUM 2GM PREMIX 50ML 50 ML IV PRN (07:15)
[2020-10-31 07:34] VITALS: BP 172/111
[2020-10-31] MEDS: ASPIRIN 81 MG EC TAB PO SCH (08:37)
[2020-10-31] MEDS: HYDROCHLOROTHIAZIDE 25 MG TABLET PO SCH (08:37)
[2020-10-31] MEDS: LOSARTAN 50 MG TABLET PO SCH (08:38)
[2020-10-31] MEDS: FAMOTIDINE 20MG TAB PO SCH ×2 (08:38→21:01)
[2020-10-31] MEDS: FUROSEMIDE 40 MG TABLET PO SCH (08:38)
[2020-10-31] MEDS: ENOXAPARIN SODIUM 40 MG/0.4 ML SYRINGE SQ SCH ×2 (08:39→21:01)
[2020-10-31] MEDS: DOXYCYCLINE 100MG+NS 250ML 250 ML IV SCH ×2 (08:39→21:24)
[2020-10-31] MEDS: MORPHINE 2 MG SYG IV PRN ×3 (08:40→20:02)
[2020-10-31] MEDS: BUDESONIDE 0.5 MG/2 ML INH IH SCH ×2 (09:27→18:41)
[2020-10-31 11:37] VITALS: BP 159/95
[2020-10-31] MEDS: AZITHROMYCIN 500MG+NS 250ML 250 ML IV SCH (13:33)
[2020-10-31] MEDS ORDERED: SODI30SP3 NS (15:09)
[2020-10-31] MEDS ORDERED: GUAI5SYR4 PO (15:09)
[2020-10-31] MEDS ORDERED: LEVO500T90 PO (15:09)
[2020-10-31] MEDS: ACETAMINOPHEN 325 MG TAB PO PRN (17:38)
[2020-10-31 19:56] VITALS: BP 177/106
[2020-10-31 20:48] VITALS: BP 177/83
[2020-10-31] MEDS: MONTELUKAST SODIUM 10 MG TAB PO SCH (21:01)
[2020-10-31] MEDS: SIMVASTATIN 20 MG TABLET PO SCH (21:01)
[2020-10-31] MEDS: INSULIN GLARGINE 100 UNITS/ML 10 ML VIAL SQ SCH (21:02)
[2020-10-31] MEDS: CLONIDINE HCL 0.1 MG TABLET PO PRN (21:23)
[2020-11-01] VITALS (8 sets, daily range): BP systolic 134–192; BP diastolic 78–101
[2020-11-01 05:19] LABS: HEMATOCRIT 38.6 % (36-48); MEAN CORPUSCULAR HEMOGLOBIN 29.8 pg (27.0-33.0); MEAN CORPUSCULAR HGB CONC 34.2 g/dL (32.0-36.0); MEAN CORPUSCULAR VOLUME 87.1 fL (79-99); NUCLEATED RED BLOOD CELLS 1.3 % (0.0-0.19); RED BLOOD CELL COUNT(AUTO) 4.43 MIL/uL (4.00-5.50); RED CELL DISTRIBUTION WIDTH 13.3 % (11.0-15.5); WHITE BLOOD COUNT (AUTO) 12.1 K/uL (4.8-10.8)
[2020-11-01 05:26] LABS: CREATININE 0.8 mg/dL (0.5-1.5); MAGNESIUM 1.9 mg/dL (1.80-2.40); POTASSIUM 4.1 mmol/L (3.5-5.1)
[2020-11-01] MEDS: SOLU-MEDROL 40MG VIAL IVP SCH ×3 (05:30→20:31)
[2020-11-01] MEDS: CLONIDINE HCL 0.1 MG TABLET PO PRN ×2 (06:17→12:33)
[2020-11-01] MEDS: INSULIN HUMULIN R 100 UNIT/ML 3ML SQ SCH ×4 (06:18→20:36)
[2020-11-01] MEDS: IPRATROPIUM/ALBUTEROL SULFATE 3 ML SOLUTION IH SCH ×3 (06:26→18:37)
[2020-11-01] MEDS: BUDESONIDE 0.5 MG/2 ML INH IH SCH ×2 (06:34→18:37)
[2020-11-01] MEDS: GUAIFENESIN 600 MG TABLET.ER PO SCH ×2 (09:34→20:31)
[2020-11-01] MEDS: ASPIRIN 81 MG EC TAB PO SCH (09:34)
[2020-11-01] MEDS: BENZONATATE 100 MG CAPSULE PO SCH ×3 (09:35→20:32)
[2020-11-01] MEDS: HYDROCHLOROTHIAZIDE 25 MG TABLET PO SCH (09:35)
[2020-11-01] MEDS: LEVOFLOXACIN 500 MG TABLET PO SCH (09:35)
[2020-11-01] MEDS: FAMOTIDINE 20MG TAB PO SCH ×2 (09:36→20:31)
[2020-11-01] MEDS: LOSARTAN 50 MG TABLET PO SCH (09:36)
[2020-11-01] MEDS: DOXYCYCLINE 100MG+NS 250ML 250 ML IV SCH ×3 (09:36→20:52)
[2020-11-01] MEDS: FUROSEMIDE 40 MG TABLET PO SCH (09:36)
[2020-11-01] MEDS: MORPHINE 2 MG SYG IV PRN ×2 (09:37→17:50)
[2020-11-01] MEDS: ENOXAPARIN SODIUM 40 MG/0.4 ML SYRINGE SQ SCH ×2 (09:37→20:31)
[2020-11-01] MEDS: AZITHROMYCIN 500MG+NS 250ML 250 ML IV SCH (12:30)
[2020-11-01] MEDS: ACETAMINOPHEN 325 MG TAB PO PRN (12:31)
[2020-11-01] MEDS: INSULIN GLARGINE 100 UNITS/ML 10 ML VIAL SQ SCH (20:37)
[2020-11-01] MEDS: SIMVASTATIN 20 MG TABLET PO SCH (20:42)
[2020-11-01] MEDS: MONTELUKAST SODIUM 10 MG TAB PO SCH (20:42)
[2020-11-02] MEDS: CLONIDINE HCL 0.1 MG TABLET PO PRN (00:19)
[2020-11-02] MEDS: IPRATROPIUM/ALBUTEROL SULFATE 3 ML SOLUTION IH SCH ×3 (00:23→11:20)
[2020-11-02 03:00] VITALS: BP 163/94
[2020-11-02] MEDS: GUAIFENESIN-CODEINE 5 ML SYRUP PO PRN ×2 (04:30→13:42)
[2020-11-02] MEDS: SOLU-MEDROL 40MG VIAL IVP SCH ×2 (05:04→13:42)
[2020-11-02] MEDS: INSULIN HUMULIN R 100 UNIT/ML 3ML SQ SCH ×3 (06:11→17:04)
[2020-11-02] MEDS: BUDESONIDE 0.5 MG/2 ML INH IH SCH (07:18)
[2020-11-02 07:47] VITALS: BP 180/101
[2020-11-02] MEDS: HYDROCHLOROTHIAZIDE 25 MG TABLET PO SCH (08:30)
[2020-11-02] MEDS: GUAIFENESIN 600 MG TABLET.ER PO SCH (08:30)
[2020-11-02] MEDS: LEVOFLOXACIN 500 MG TABLET PO SCH (08:31)
[2020-11-02] MEDS: FAMOTIDINE 20MG TAB PO SCH (08:31)
[2020-11-02] MEDS: FUROSEMIDE 40 MG TABLET PO SCH (08:31)
[2020-11-02] MEDS: ASPIRIN 81 MG EC TAB PO SCH (08:31)
[2020-11-02] MEDS: LOSARTAN 50 MG TABLET PO SCH (08:31)
[2020-11-02] MEDS: BENZONATATE 100 MG CAPSULE PO SCH ×2 (08:32→13:42)
[2020-11-02] MEDS: ENOXAPARIN SODIUM 40 MG/0.4 ML SYRINGE SQ SCH (08:34)
[2020-11-02] MEDS: DOXYCYCLINE 100MG+NS 250ML 250 ML IV SCH (08:35)
[2020-11-02 09:00] VITALS: BP 132/80
[2020-11-02 11:44] VITALS: BP 154/77
[2020-11-02] MEDS: AZITHROMYCIN 500MG+NS 250ML 250 ML IV SCH (12:14)
[2020-11-02] MEDS: MORPHINE 2 MG SYG IV PRN (12:38)
[2020-11-02 16:00] VITALS: BP 157/94
[2020-11-02] MEDS ORDERED: MORPHINE 2 MG SYG IVP PRN (17:15)
[2020-11-02] MEDS ORDERED: INSULIN GLARGINE 100 UNITS/ML 10 ML VIAL SQ SCH (21:00)
== END 2020-11-02 19:05 | DRG 193 ==
LOC: EDH 08:14 → EDHIP 12:42 → 4DH 19:39
PROVIDERS: ADMIT Internal Medicine; ATTEND Internal Medicine
DX: J18.9 Pneumonia, unspecified organism (principal); J96.21 Acute and chronic respiratory failure with hypoxia; Z68.41 Body mass index [BMI] 40.0-44.9, adult; I50.30 Unspecified diastolic (congestive) heart failure; J43.9 Emphysema, unspecified; M47.816 Spondylosis without myelopathy or radiculopathy, lumbar region; E66.01 Morbid (severe) obesity due to excess calories; E11.9 Type 2 diabetes mellitus without complications; E87.6 Hypokalemia; G47.30 Sleep apnea, unspecified; I11.0 Hypertensive heart disease with heart failure; Z87.891 Personal history of nicotine dependence; Z99.81 Dependence on supplemental oxygen; G47.33 Obstructive sleep apnea (adult) (pediatric); R59.0 Localized enlarged lymph nodes; E87.8 Other disorders of electrolyte and fluid balance, not elsewhere classified; Z20.822 Contact with and (suspected) exposure to COVID-19
CPT/HCPCS: 36415; 36600; 71045; 71275; 72131; 80048; 80053; 81001; 82803; 82948; 83605; 83735; 83880; 84145; 84484; 85025; 85027; 85378; 85610; 87040; 87071; 87088; 87205; 87426; 87804; 87880; 93005; 93306; 93356; 93970; 94640; 94660; 94664; 94667; 94668; G0378; J0456; J1170; J1650; J1815; J2405; J2920; J2930; J3475; J3490; Q9967; U0003